=== PATIENT | female | born 1950 | race Caucasian/White ===

== ENCOUNTER 2021-04-30 13:14 | Outpatient (CLI) | payer MEDICARE | END 2021-04-30 13:15 | disposition home or self-care (01) | LOC: CSHMAMMO 13:14 | PROVIDERS: ATTEND Family Medicine | DX: Z12.31 Encounter for screening mammogram for malignant neoplasm of breast (principal) | CPT/HCPCS: 77063; 77067 ==

== ENCOUNTER 2022-06-23 12:37 | Outpatient (CLI) | payer MEDICARE, OTHER | END 2022-06-23 12:38 | disposition home or self-care (01) | LOC: CSHMAMMO 12:37 | PROVIDERS: ATTEND Family Medicine | DX: Z12.31 Encounter for screening mammogram for malignant neoplasm of breast (principal) | CPT/HCPCS: 77063; 77067 ==

== ENCOUNTER 2022-10-25 07:42 | Emergency (ER) | payer MEDICARE ==
[2022-10-25] MEDS ORDERED: Acetaminophen 500 MG TAB ONE (08:22)
[2022-10-25] MEDS ORDERED: Lidocaine 1% w/Epinephrine 1:200K 30 ML VIAL ONE (08:25)
[2022-10-25] MEDS ORDERED: Boostrix 0.5 ML (Tdap) VIAL (>/=7 yrs of age) ONE (09:39)
== END 2022-10-25 09:43 | disposition home or self-care (01) ==
LOC: CSHERS 07:42
DX: S01.01XA Laceration without foreign body of scalp, initial encounter (principal); S39.012A Strain of muscle, fascia and tendon of lower back, initial encounter; E78.5 Hyperlipidemia, unspecified; I10 Essential (primary) hypertension; W11.XXXA Fall on and from ladder, initial encounter; Z23 Encounter for immunization; Z79.899 Other long term (current) drug therapy
CPT/HCPCS: 12001; 70450; 72100; 72170; 90471; 90715

== ENCOUNTER 2024-11-21 11:42 | Outpatient (CLI) | payer MEDICARE | END 2024-11-21 11:43 | disposition home or self-care (01) | LOC: CSHMAMMO 11:42 | PROVIDERS: ATTEND Nurse Practitioner Family | DX: Z12.31 Encounter for screening mammogram for malignant neoplasm of breast (principal); N64.89 Other specified disorders of breast | CPT/HCPCS: 77063; 77067 ==

== ENCOUNTER 2024-11-23 08:44 | Outpatient (CLI) | payer MEDICARE | END 2024-11-23 08:45 | disposition home or self-care (01) | LOC: CSHMAMMO 08:44 | PROVIDERS: ATTEND Nurse Practitioner Family | DX: N64.89 Other specified disorders of breast (principal) | CPT/HCPCS: 77065; G0279 ==